=== PATIENT | male | born 1960 | race Caucasian/White ===

== ENCOUNTER 2023-05-29 09:50 | Outpatient (CLI) | payer OTHER, SELFPAY ==
--- NOTE | 2023-05-29 10:02 | XR_ITS ---
WS: [id number] Cervical spine, 3 views, 05/29/2023 Clinical Data: NECK PAIN; LOW BACK PAIN; ENCOUNTER FOR DISABILITY Comparison: None. Findings: No compression fractures are seen. There is degenerative disc narrowing at C5-C6 and C6-C7 there are anterior osteophytes from C3-C7. There is no prevertebral soft tissue swelling. The odonto id is unremarkable. There are calcifications in the region of the carotid bifurcations. The lung apic es are unremarkable. Impression: 1. Degenerative disc narrowing at C5-C6 and C6/C7. 2. Anterior osteophytes C3-C7.
--- NOTE | 2023-05-29 10:02 | XR_ITS ---
WS: [id number] Lumbar spine, 3 views, 05/29/2023 Clinical Data: NECK PAIN; LOW BACK PAIN; ENCOUNTER FOR DISABILITY Comparison: None. Findings: No compression fractures are is seen. There is degenerative disc narrowing at all levels from T12-L1 through L5-S1. There is a 0.8 cm subluxation of L4 on L5 there is a levoscoliosis. The transverse pro cesses and SI joints are normal. Impression: 1. There is degenerative disc narrowing at all levels. 2. Osteoarthritis and levoscoliosis. 3. Anterior subluxation of L4 on L5.
== END 2023-05-29 09:51 | disposition home or self-care (01) ==
LOC: RAD 09:54
PROVIDERS: Visit Provider Dermatology
DX: M54.50 Low back pain, unspecified (principal); M51.36 Other intervertebral disc degeneration, lumbar region; M50.322 Other cervical disc degeneration at C5-C6 level
CPT/HCPCS: 72040; 72100

== ENCOUNTER → 2023-07-24 10:32 | Outpatient (BNVA) | payer MEDICAID, SELFPAY | PROVIDERS: PCP Family Medicine Adult Medicine; Visit Provider Family Medicine Adult Medicine | DX: I10 Essential (primary) hypertension (principal); E66.9 Obesity, unspecified; K21.9 Gastro-esophageal reflux disease without esophagitis; M54.42 Lumbago with sciatica, left side; M54.41 Lumbago with sciatica, right side; G89.29 Other chronic pain | CPT/HCPCS: 80053; 80061; 84443; 85025; G0103 ==

== ENCOUNTER 2024-01-01 09:25 | Outpatient (CLI) | payer MEDICAID, SELFPAY ==
--- NOTE | 2024-01-01 09:28 | MR_ITS ---
WS: [id number] MRI LUMBAR SPINE NONCONTRAST TECHNIQUE: Sagittal T1, T2 and STIR imaging. Axial T1 and T2 imaging. CLINICAL INFORMATION: VERTEBROGENIC LOW BACK PAIN COMPARISON: None. FINDINGS: Lumbar curve convex LEFT. No acute compression fractures. Grade 1 anterolisthesis L4 and L5. Disc bul ging worse at L4-5. Small protrusions in the cervical spine at C3-C4 and C5-C6 on the aerospace engineer imaging. Central protrusions in the thoracic spine at T6-T7 and T7-T8 worse at T7-T8 with slight indentation on the thoracic cord. T12-L1: Central disc protrusion with mild central canal stenosis. Mild LEFT and no significant RIGHT foraminal narrowing. L1-L2: Slight retrolisthesis L1 on L2. Mild facet arthropathy. Mild RIGHT foraminal narrowing. Spinal canal is patent. L2-L3: Mild annular bulging. Mild central canal stenosis. Narrowing of the RIGHT greater than LEFT cortes barticular recess. Moderate facet arthropathy with ligamentum flavum hypertrophy. RIGHT foraminal pro trusion with mild RIGHT foraminal narrowing. L3-L4: Mild annular bulging. Moderate central canal stenosis. LEFT foraminal protrusion impinges the exiting LEFT L3 nerve root with moderate LEFT foraminal narrowing. Mild RIGHT foraminal narrowing. L4-L5: Grade 1 anterolisthesis. Severe central canal stenosis. Advanced facet arthropathy. RIGHT face t synovitis. Moderate RIGHT and mild LEFT foraminal narrowing. L5-S1: Mild disc bulging with slight effacement of the ventral thecal sac. Moderate LEFT foraminal na rrowing. RIGHT foramen is patent. Advanced facet arthropathy. LEFT greater than RIGHT facet synovitis with small facet effusions. Visualized pelvic bony structures: Normal. Paravertebral soft tissues: Normal. MR/MR lumbar spine wo con* [id number] IMPRESSION: 1. Moderate central canal stenosis L3-4. Severe central canal stenosis L4-5 du e to disc bulging with grade 1 anterolisthesis. Associated facet arthropathy wi th ligamentum flavum hypertrophy at this level. Prominent epidural fat contribu alyssa to stenosis and narrowing of the thecal sac. 2. RIGHT L4-5 facet synovitis with a RIGHT facet effusion. LEFT greater than R IGHT L5-S1 facet synovitis. Synovitis likely degenerative or inflammatory. 3. Small central protrusion T12-L1 with mild central canal stenosis. 4. Moderate RIGHT L4-5 and LEFT L5-S1 foraminal narrowing. 5. Small bilateral foraminal protrusions L3-4 LEFT greater than RIGHT. 6. Small central protrusions in the cervical and thoracic spine described abov e. This could further evaluated with cervical and thoracic MRI
== END 2024-01-01 09:26 | disposition home or self-care (01) ==
LOC: RAD 09:26
PROVIDERS: PCP Family Medicine Adult Medicine; Visit Provider Anesthesiology Pain Medicine
DX: M48.061 Spinal stenosis, lumbar region without neurogenic claudication (principal); M51.360 Other intervertebral disc degeneration, lumbar region with discogenic back pain only; M47.896 Other spondylosis, lumbar region; M99.61 Osseous and subluxation stenosis of intervertebral foramina of cervical region; M50.20 Other cervical disc displacement, unspecified cervical region; M51.24 Other intervertebral disc displacement, thoracic region
CPT/HCPCS: 72148

== ENCOUNTER → 2024-07-19 08:48 | Outpatient (BNVA) | payer MEDICAID, SELFPAY | PROVIDERS: PCP Family Medicine; Visit Provider Family Medicine | DX: I10 Essential (primary) hypertension (principal); K21.9 Gastro-esophageal reflux disease without esophagitis; N18.2 Chronic kidney disease, stage 2 (mild); D58.2 Other hemoglobinopathies; M54.42 Lumbago with sciatica, left side; M54.41 Lumbago with sciatica, right side; G89.29 Other chronic pain; F17.200 Nicotine dependence, unspecified, uncomplicated; G56.03 Carpal tunnel syndrome, bilateral upper limbs | CPT/HCPCS: 80053; 80061; 82728; 83540; 84443; 85025 ==

== ENCOUNTER → 2024-07-22 12:23 | Outpatient (BNVA) | payer MEDICAID, SELFPAY | PROVIDERS: PCP Family Medicine; Visit Provider Family Medicine | DX: R74.8 Abnormal levels of other serum enzymes (principal); N18.2 Chronic kidney disease, stage 2 (mild); D58.2 Other hemoglobinopathies; I10 Essential (primary) hypertension; R79.0 Abnormal level of blood mineral | CPT/HCPCS: 80048; 82728; 83550; 84466; 86705; 86706; 86709; 86803; 87340 ==

== ENCOUNTER → 2024-07-28 09:17 | Outpatient (BNVA) | payer MEDICAID, SELFPAY | PROVIDERS: PCP Family Medicine; Visit Provider Physician Assistant | DX: G56.03 Carpal tunnel syndrome, bilateral upper limbs (principal); G56.23 Lesion of ulnar nerve, bilateral upper limbs | CPT/HCPCS: 73110 ==

== ENCOUNTER 2024-08-10 07:03 | Outpatient (CLI) | payer MEDICAID, SELFPAY ==
--- NOTE | 2024-08-10 07:15 | US_ITS ---
WS: [id number] RIGHT UPPER QUADRANT ULTRASOUND HISTORY: elevated liver enzymes COMPARISON: None available. Liver: 20.8 cm in length. Moderately enlarged liver. Coarse echotexture throughout. No mass. No intrahepatic duct dilatation. Portal Vein: Normal hepatopetal flow with monophasic waveform. Gallbladder: Normally distended. Neck of the gallbladder is poorly visualized due to body habitus. No stones are identified. No wall thickening or pericholecystic fluid. CBD: 0.4 cm Pancreas: Not visualized. Right kidney: 10.5 cm in length. Normal size and echogenicity. No hydronephrosis or mass. Aorta and IVC: Unremarkable abdominal aorta and IVC. No ascites. US/US abdomen limited [id number] IMPRESSION: 1. Negative gallbladder as visualized. Limited by body habitus. 2. Moderate hepatomegaly with hepatic steatosis.
== END 2024-08-10 07:04 | disposition home or self-care (01) ==
PROVIDERS: PCP Family Medicine; Visit Provider Family Medicine
DX: R74.8 Abnormal levels of other serum enzymes (principal); N18.2 Chronic kidney disease, stage 2 (mild); I10 Essential (primary) hypertension; D58.2 Other hemoglobinopathies; R16.0 Hepatomegaly, not elsewhere classified; K76.0 Fatty (change of) liver, not elsewhere classified
CPT/HCPCS: 76705; 80048; 83540

== ENCOUNTER → 2024-08-16 09:17 | Outpatient (BNVA) | payer MEDICAID, SELFPAY | PROVIDERS: PCP Family Medicine; Visit Provider Family Medicine | DX: I10 Essential (primary) hypertension (principal); N18.2 Chronic kidney disease, stage 2 (mild) | CPT/HCPCS: 80048 ==